=== PATIENT | female | born 1965 | race Caucasian/White ===

== ENCOUNTER → 2019-12-24 10:47 | Outpatient (BNVA) | payer SELFPAY | PROVIDERS: Family Provider Nurse Practitioner Family; PCP Nurse Practitioner Family; Visit Provider Internal Medicine Rheumatology | DX: L40.50 Arthropathic psoriasis, unspecified (principal); L40.8 Other psoriasis; M79.18 Myalgia, other site | CPT/HCPCS: 99214 ==